=== PATIENT | male | born 1960 | race Two or more races ===

== ENCOUNTER 2022-08-31 13:25 | Emergency (ER) | payer MEDICAID ==
[~2022-08-31] VITALS: Ht 170.2 cm; Wt 105.5 kg
[2022-08-31] MEDS ORDERED: BACDST PO (16:00)
[2022-08-31] MEDS ORDERED: ACET1CAP14 PO (16:00)
[2022-08-31] MEDS ORDERED: ACETAMINOPHEN 500 MG TAB PO ONE (16:00)
[2022-08-31] MEDS ORDERED: cefTRIAXone SOD 1,000 MG VL IM ONE (16:00)
[2022-08-31] MEDS ORDERED: FURO1TAB31 PO (16:03)
[2022-08-31 16:32] VITALS: BP 166/90
== END 2022-08-31 16:02 | disposition home or self-care (01) ==
LOC: ER 13:25
DX: S83.91XA Sprain of unspecified site of right knee, initial encounter (principal); L03.115 Cellulitis of right lower limb; Z98.890 Other specified postprocedural states; X50.1XXA Overexertion from prolonged static or awkward postures, initial encounter; Y93.89 Activity, other specified; Y92.89 Other specified places as the place of occurrence of the external cause; Y99.8 Other external cause status
CPT/HCPCS: 73562; 96372; 99283; J0696

== ENCOUNTER 2025-06-28 14:34 | Emergency (ER) | payer MEDICAID ==
[~2025-06-28] VITALS: Ht 170.2 cm; Wt 100.0 kg
[~2025-06-28 14:34] MED LIST: ACET1CAP14 PO; BACDST PO; FURO1TAB31 PO
[2025-06-28 14:48] VITALS: PULSE 70; RESP 23; O2SAT 93
--- NOTE | 2025-06-28 15:26 | ED.PDOC ---
Richardt. trauma (HPI) HPI Comments 65 y.o male with PMHx of HTN, presents to the ED via EMS for an evaluation of a dog bite. Patient reports he was bitten by a stray pitbull and presents with a 4cm laceration to the left medial eye, nasal and chin area. Patient states while being attacked, he fell onto his right side and presents with right arm pain d escribed as a soreness sensation. He denies any LOC or head injuries. He is not updated on his tetanus vaccine. Chief Complaint: Animal Bite Time Seen by MD: 15:19 Primary Care Provider: MARCIE Reviewed notes: Nurses Notes, Demand Generation Manager Notes, Medications, Allergies Allergies: Coded Allergies: NO KNOWN ALLERGIES (Unverified , 08/31/22) Home Meds Active Scripts Furosemide (Lasix) 40 Mg Tab, 20 MG PO DAILY for 3 Days, #3 TAB 0 Refills Prov:RANDALL ANGUIANO [facility] 08/31/22 Acetaminophen (Tylenol) 325 Mg Cap, 325 MG PO Q4HPRN PRN, #30 CAP 0 Refills Take 1-2 caps po q4h prn for pain Prov:RANDALL ANGUIANO [facility] 08/31/22 Sulfamethoxazole W/Trimethopri (Bactrim Ds Tablet) 1 Tab Tb, 1 TAB PO BID for 10 Days, #20 TAB 0 Refills Prov:RANDALL ANGUIANO [facility] 08/31/22 Information Source: Patient, Emergency Med Personnel Mode of Arrival: EMS Severity: Moderate Timing: Hours Duration: Since onset Location: (R) Arm, (R) Forearm Location of laceration: Face Mechanism: Other (dog attack ) Associated signs and symtoms: Other Past Medical History PAST MEDICAL HISTORY: HTN Surgical History (Other): left big toe and left eye Family History Family History: Family hx of Cancer Social History Smoker: Non-Smoker Alcohol: Denies ETOH Use Drugs: Denies Drug Use Lives In: Home Constitutional: denies: chills, diaphoresis, fatigue, fever, malaise, sweats, weakness, others EENTM: denies: blurred vision, double vision, ear bleeding, ear discharge, ear drainage, ear pain, ear ringing, eye pain, eye redness, hearing loss, mouth pain, mouth swelling, nasal discharge, nose bleeding, nose congestion, nose pain, photophobia, tearing, throat pain, throat swelling, voice changes, others Respiratory: denies: cough, hemoptysis, orthopnea, SOB at rest, shortness of breath, SOB with excertion, stridor, wheezing, others Cardiovascular: denies: chest pain, dizzy spells, diaphoresis, Dyspnea on exertion, edema, irregular heart beat, left arm pain, lightheadedness, palpitations, PND, syncope, others Gastrointestinal: denies: abdomen distended, abdominal pain, blood streaked bowels, constipated, diarrhea, dysphagia, difficulty swallowing, hematemesis, melena, nausea, poor appetite, poor fluid intake, rectal bleeding, rectal pain, vomiting, others Genitourinary: denies: burning, dysuria, flank pain, frequency, hematuria, incontinence, penile discharge, penile sore, pain, testicle pain, testicle swelling, urgency, others Neurological: denies: dizziness, fainting, headache, left sided numbness, left sided weakness, numbness, paresthesia, pre-existing deficit, right sided numbness, right sided weakness, seizure, speech problems, tingling, tremors, weakness, others Musculoskeletal: reports: others (right arm pain ); denies: back pain, gout, joint pain, joint swelling, muscle pain, muscle stiffness, neck pain Integumetry: reports: laceration; denies: bruises, change in color, change in hair/nails, dryness, lesions, lumps, rash, wounds, others Allergic/Immunocompromised: denies: Difficulty Healing, Frequent Infections, Hives, Itching, others Hematologic/Lymphatic: denies: anemia, blood clots, easy bleeding, easy bruising, swollen glands, others Endocrine: denies: excessive hunger, excessive sweating, excessive thirst, excessive urination, flushing, intolerance to cold, intolerance to heat, unexplained weight gain, unexplained weight loss, others Psychiatric: denies: anxiety, bipolar disorder, depression, hopeless, panic disorder, schizophrenia, sleepless, suicidal, others All Other Systems: Reviewed and Negative Physical Exam General Appearance: Moderate Distress HEENT: Pharynx Normal, TMs Normal, Other (Dog bite around the medial aspect of the left eye as well as the nasal region) Neck: Full Range of Motion, Non-Tender, Normal, Normal Inspection Respiratory: Chest Non-Tender, Lungs Clear, No Accessory Muscle Use, No Respiratory Distress, Normal Breath Sounds Cardiovascular: No Edema, No JVD, No Murmur, No Gallop, Normal Peripheral Pulses, Regular Rate/Rhythm Breast Exam: Deferred Gastrointestinal: No Organomegaly, Non Tender, No Pulsatile Mass, Normal Bowel Sounds, Soft Genitalia: Deferred Pelvic: Deferred Rectal: Deferred Extremities: No calf tenderness, Normal capillary refill, No pedal edema, Other (Right shoulder with obvious deformity with decreased range of motion and tenderness) Musculoskeletal : Apperance: Normal Neurologic: Alert, observer gravity prospecting II-XII nml as Tested, No Motor Deficits, Normal Affect, Normal Mood, No Sensory Deficits Cerebellar Function: Normal Reflexes: Normal Skin: Dry, Normal Color, Warm Lymphatic: No Adenopathy Was a procedure done? Was a procedure done?: Yes Sedation Sedation?: Yes Informed consent obtained: Yes Sedation start time: 17:44 Sedation end time: 17:54 Sedation total time: 10 minutes Reduction Indication: Dislocation Sedation: Consents obtained, Sedation as ordered Intra-articular anesthetic magali: No Post-reduction x-ray show: Reduction (Right shoulder), Good Alignment Informed consent obtained: Yes Risks/benefits/alt described: Yes Differential Diagnosis Multiple Trauma: Fractures, Abrasions, Contusion, Laceration X-Ray, Labs, Meds, VS Vital Signs Date Time Temp Pulse Resp B/P (MAP) Pulse Ox O2 Delivery O2 Flow Rate FiO2 06/28/25 18:25 71 16 184/110 (134) 95 06/28/25 18:10 70 19 180/113 (135) 96 06/28/25 17:58 68 22 186/115 (138) 96 06/28/25 17:53 67 20 178/111 (133) 97 06/28/25 17:48 71 17 185/110 (135) 94 06/28/25 17:44 69 23 97 6.0 44 66 22 96 68 96 06/28/25 17:43 98.2 70 17 165/99 (121) 96 98.2 06/28/25 17:06 68 21 172/90 (117) 94 06/28/25 17:05 68 21 172/90 06/28/25 16:22 70 24 174/108 06/28/25 15:00 98.4 73 23 109/98 (102) 91 98.4 06/28/25 14:48 98.2 70 23 174/98 (123) 93 98.2 06/28/25 14:48 70 23 93 Room Air* 0 21 06/28/25 14:34 98.5 81 16 196/70 94 98.5 Lab Test 06/28/25 15:37 Range/Units White Blood Count 5.8 4.4-10.8 10^3/uL Red Blood Count 5.13 4.5-5.90 10^6/uL Hemoglobin 15.4 13.5-17.5 g/dL Hematocrit 45.9 41.0-53.0 % Mean Corpuscular Volume 89.6 80.0-100.0 fL Mean Corpuscular Hemoglobin 30.1 28.0-32.0 pg Mean Corpuscular Hemoglobin Concent 33.6 32.0-36.0 g/dL Red Cell Distribution Width 13.3 11.8-14.3 % Platelet Count 234 140-450 10^3/uL Mean Platelet Volume 7.5 6.9-10.8 fL Neutrophils (%) (Auto) 65.3 37.0-80.0 % Lymphocytes (%) (Auto) 19.4 10.0-50.0 % Monocytes (%) (Auto) 11.3 0.0-12.0 % Eosinophils (%) (Auto) 3.4 0.0-7.0 % Basophils (%) (Auto) 0.6 0.0-2.0 % Neutrophils # (Auto) 3.8 1.6-8.6 10 ^3/uL Lymphocytes # (Auto) 1.1 0.4-5.4 10 ^3/uL Monocytes # (Auto) 0.7 0-1.3 10 ^3/uL Eosinophils # (Auto) 0.2 0-0.8 10 ^3/uL Basophils # (Auto) 0 0-0.2 10 ^3/uL Nucleated Red Blood Cells 0.0 % Sodium Level 140 136-145 mmol/L Potassium Level 4.0 3.5-5.1 mmol/L Chloride Level 106 98-107 mmol/L Carbon Dioxide Level 26 20-31 mmol/L Anion Gap 8 5-15 Blood Urea Nitrogen 8 L 9-23 mg/dL Creatinine 1.18 0.700-1.30 mg/dL Glomerular Filtration Rate Calc 69 >90 mL/min BUN/Creatinine Ratio 6.8 L 10.0-20.0 Serum Glucose 120 H 74-106 mg/dL Calcium Level 9.2 8.7-10.4 mg/dL Current Medications Medications (Trade) Dose Ordered Sig/Tomas Route Start Time Stop Time Status Last Admin Sodium Chloride 1,000 ml @ 1,000 mls/hr Q1H ONCE IV 06/28/25 15:30 06/28/25 16:29 DC 06/28/25 16:22 Ondansetron HCl (Zofran) 4 mg ONCE ONCE IV 06/28/25 15:30 06/28/25 15:31 DC 06/28/25 16:21 Morphine Sulfate 4 mg ONCE ONCE IV 06/28/25 15:30 06/28/25 15:31 DC 06/28/25 16:22 Diphtheria/ Tetanus/Acell Pertussis (Boostrix T-Dap) 0.5 ml ONCE ONCE IM 06/28/25 15:30 06/28/25 15:31 DC 06/28/25 16:21 Vancomycin HCl 250 ml @ 250 mls/hr ONCE ONCE IV 06/28/25 17:00 06/28/25 17:59 DC 06/28/25 17:02 Etomidate 20 mg ONCE ONCE IV 06/28/25 17:15 06/28/25 17:16 DC 06/28/25 17:44 IV Hep-Lock was established. The patient was given morphine 4 mg IV push for the pain The patient was given Zofran 4 mg IV push for the nausea The patient was given a tetanus shot. The patient was given vancomycin IV piggyback and Unasyn for the possible infection prevention of the dog bite. The patient's CBC is within normal limits The chemistry panel is within normal limits Maxillofacial CAT scan shows: IMPRESSION: 1. Acute left inferior orbital blowout fracture. Entrapment of the left inferior rectus cannot be excluded. Correlation with ophthalmologic examination is suggested. 2. Acute displaced nasal bone fractures with overlying soft tissue swelling. A nasal septal hematoma cannot be excluded and attention on physical examination is suggested. 3. Subcutaneous gas and swelling overlying the chin, correlation for recent injury suggested. 4. Additional findings as detailed. X-ray of the right shoulder shows an anterior dislocation of the findings on the CAT scan we did contact [facility]. We spoke with Dr. Ortiz and he has accepted the patient for transfer. X-ray of the right shoulder shows proper placement after the procedure was done for reduction of the right shoulder The patient will be transferred to [facility] at this time Patient's blood pressure has remained somewhat elevated so we are giving the patient hydralazine here in the emergency department's Images Reviewed?: Images reviewed and evaluated by me Time of 1ST Reevaluation: 15:22 Reevaluation 1ST: Unchanged Patient Education/Counseling: Diagnosis, Treatment, Prognosis Family Education/Counseling: No Family Present Departure 1 Departure Time of Disposition: 18:50 Impression: Primary Impression: Dog bite of face Qualified Codes: S01.85XA - Open bite of other part of head, initial encounter; W54.0XXA - Bitten by dog, initial encounter Additional Impressions: Anterior dislocation of right shoulder Qualified Codes: S43.014A - Anterior dislocation of right humerus, initial encounter Nasal bone fracture Qualified Codes: S02.2XXB - Fracture of nasal bones, initial encounter for open fracture Disposition: 01 HOME / SELF CARE / HOMELESS Condition: Fair Discharged With: Self Critical Care Note Critical Care Time?: Yes (45 min-critical care time only) Stability Stability form required: Yes Stable for transfer: Intended for transfer, To designated facility I personally scribed for DEBBI JAIN MD ([email or web address]) on 06/28/25 at 15:26. Electronically submitted by Gwendolyn Holloway ([facility]). DEBBI JAIN MD Jun 28, 2025 15:26
[2025-06-28 16:01] LABS: Hematocrit 45.9 % (41.0-53.0); Hemoglobin 15.4 g/dL (13.5-17.5); Mean Corpuscular Hemoglobin 30.1 pg (28.0-32.0); Mean Corpuscular Volume 89.6 fL (80.0-100.0); Nucleated Red Blood Cells % 0.0 %
[2025-06-28 16:04] LABS: Chloride 106 mmol/L (98-107); Potassium 4.0 mmol/L (3.5-5.1); Sodium 140 mmol/L (136-145)
[2025-06-28 16:06] LABS: Anion Gap 8 (5-15); Calcium 9.2 mg/dL (8.7-10.4); Carbon Dioxide 26 mmol/L (20-31)
[2025-06-28 16:11] LABS: BUN/Creatinine Ratio 6.8 (10.0-20.0)
[2025-06-28 16:13] LABS: Blood Urea Nitrogen 8 mg/dL (9-23); Glucose 120 mg/dL (74-106)
[2025-06-28] MEDS: ONDANSETRON HCL 4 MG/2 ML VIAL IV ONE (16:21)
[2025-06-28] MEDS: TETANUS-DIPTH-ACEL PERTUSSIS 0.5ML SYR Tdap IM ONE (16:21)
[2025-06-28] MEDS: MORPHINE SULFATE 4 MG/ML SYR/VIAL IV ONE (16:22)
[2025-06-28] MEDS: SODIUM CHLORIDE 0.9% 1,000 ML IV ONE (16:22)
--- NOTE | 2025-06-28 16:33 | DVH ---
CLINICAL INDICATION: trauma TECHNIQUE: 3 radiographic views of the right shoulder were obtained. COMPARISON: None FINDINGS/IMPRESSION: Anterior dislocation right humerus. No fractures visualized.
--- NOTE | 2025-06-28 16:41 | DVH ---
EXAM: XY R SHOULDER 2+ VIEW XRAY HISTORY: TRAUMA POSSIBLE DISLOCATION COMPARISON: None TECHNIQUE: 3 views of the right shoulder were performed. FINDINGS/IMPRESSION: 1. Anterior dislocation of the right glenohumeral joint. 2. Question of ill-defined fracture of the right glenoid versus artifactual appearance. Consider follow-up noncontrast CT or MRI of the right shoulder 4 better characterization of the bony detail. 3. Acromioclavicular hypertrophy with prominent inferiorly projecting bone spur.
--- NOTE | 2025-06-28 16:44 | DVH ---
HISTORY: trauma TECHNIQUE: Nonenhanced axial images through the facial bones with coronal and sagittal MPR. Radiation Dose Information: CT Dose: CTDI volume is 66.95 mGy. Dose-length product is 1564.29 mGy*cm COMPARISON: None FINDINGS: There is a left inferior orbital blowout fracture with herniation of fat into the region of the maxillary antrum. There is mild thickening of the left inferior rectus such that entrapment cannot be entirely excluded. There are acute comminuted and displaced left nasal bone fractures with overlying soft tissue swelling. There is mild Age-indeterminate angulation of the nasal septum. Intermediate density is seen throughout the left nostril, a nasal septal hematoma cannot be excluded attention on physical examination is suggested. There is left pre maxillary subcutaneous stranding and swelling. There is mild left periorbital swelling. There is no proptosis or retro bulbar stranding. There is subcutaneous gas and swelling overlying the chin. There is mild mucosal thickening within the left ethmoid air cells. The paranasal sinuses and mastoid air cells are otherwise clear. Visualized intracranial structures are unremarkable. Dental hardware obscures evaluation of the lower face. Several upper teeth are absent. IMPRESSION: 1. Acute left inferior orbital blowout fracture. Entrapment of the left inferior rectus cannot be excluded. Correlation with ophthalmologic examination is suggested. 2. Acute displaced nasal bone fractures with overlying soft tissue swelling. A nasal septal hematoma cannot be excluded and attention on physical examination is suggested. 3. Subcutaneous gas and swelling overlying the chin, correlation for recent injury suggested. 4. Additional findings as detailed. Radiation optimization: All CT scans at this facility use at least one of these dose optimization techniques: automated exposure control mA and/or kV adjustment per patient size (includes targeted exams where dose is matched to clinical indication) or iterative reconstruction.
[2025-06-28] MEDS: VANCOMYCIN 1GM/250ML KIT 250 ML IV ONE (17:02)
[2025-06-28] MEDS: ETOMIDATE (2MG/ML) 20ML VIAL IV ONE (17:44)
--- NOTE | 2025-06-28 18:45 | DVH ---
EXAM: XY R SHOULDER 1V XRAY INDICATION: s/p shoulder reduction, verify placement TECHNIQUE:: 1 views of the right shoulder COMPARISON: XY R SHOULDER 2+ VIEW XRAY on DOS: 06/28/25 FINDINGS/IMPRESSION: Status post closed reduction with presumed successful ligament. Elevation of the right humeral head suggestive of superior rotator cuff insufficiency. Mild degenerative change of the right acromioclavicular joint. Appearance of Hill- Sachs defect.
[2025-06-28] MEDS: AMPICILLIN & SULBACTAM SODIUM 3 GM in SODIUM CHL 0.9% 100 ML IV SCH (19:00)
[2025-06-28] MEDS: hydrALAZINE HCL 20 MG/ML VL IV ONE (19:03)
[2025-06-28 20:19] VITALS: BP 164/89; PULSE 85; RESP 17; TEMP 98; O2SAT 96
== END 2025-06-28 20:58 | disposition short-term general hospital (02) ==
LOC: ER 14:34 → EDBD 14:34 → ER 20:58
DX: S02.2XXA Fracture of nasal bones, initial encounter for closed fracture (principal); S43.014A Anterior dislocation of right humerus, initial encounter; S01.85XA Open bite of other part of head, initial encounter; I10 Essential (primary) hypertension; Z79.899 Other long term (current) drug therapy; W54.0XXA Bitten by dog, initial encounter; Y93.89 Activity, other specified; Y92.89 Other specified places as the place of occurrence of the external cause; Y99.8 Other external cause status
CPT/HCPCS: 23650; 36415; 70486; 73020; 73030; 73060; 80048; 85025; 90471; 90715; 96361; 96365; 96367; 96375; 99152; 99291; J0360; J2270; J2405; J3373; J7030

== ENCOUNTER 2025-07-04 08:18 | Emergency (ER) | payer MEDICAID ==
[~2025-07-04] VITALS: Ht 170.2 cm; Wt 100.0 kg
--- NOTE | 2025-07-04 08:33 | ED.PDOC ---
Musculoskeletal HPI Comments 65 y/o M, BIBA, with PMHx of HTN presents to the ED for CC of right shoulder pain. EMS reports, patient is coming from home where he c/o right shoulder pain with associated swelling following extension of his right upper extremity. Per EMS, patient suffered a right shoulder dislocation on Tuesday (06/28/25) which was successfully reduced. Patient denies numbness, tingling, trauma, injury, or fall. Time Seen by MD: 08:25 Primary Care Provider: MARCIE Reviewed Notes: Nurses Notes, Carding Machine Feeder Notes, Medications, Allergies Allergies: Coded Allergies: NO KNOWN ALLERGIES (Unverified , 08/31/22) Home Meds Active Scripts Furosemide (Lasix) 40 Mg Tab, 20 MG PO DAILY for 3 Days, #3 TAB 0 Refills Prov:RANDALL ANGUIANO [facility] 08/31/22 Acetaminophen (Tylenol) 325 Mg Cap, 325 MG PO Q4HPRN PRN, #30 CAP 0 Refills Take 1-2 caps po q4h prn for pain Prov:RANDALL ANGUIANO [facility] 08/31/22 Sulfamethoxazole W/Trimethopri (Bactrim Ds Tablet) 1 Tab Tb, 1 TAB PO BID for 10 Days, #20 TAB 0 Refills Prov:RANDALL ANGUIANO [facility] 08/31/22 Information Source: Patient Mode of Arrival: EMS Location: Right Extremity Location: Shoulder Timing: Hours Prehospital treatment: None Severity: Moderate Able to Move Extremity: Yes Bear Weight: Limited Pain: Moderate Mechanism: Other (extension) Onset of Symptoms: After Trauma Symptoms: Swelling, Pain DVT Risk Factors: NONE Last Tetanus: Unknown History of: Shoulder Dislocation Associated signs and symptoms: Shoulder pain Past Medical History PAST MEDICAL HISTORY: HTN Family History Family History: Family hx of Cancer Social History Smoker: Non-Smoker Alcohol: Denies ETOH Use Drugs: Denies Drug Use Lives In: Home Constitutional: denies: chills, diaphoresis, fatigue, fever, malaise, sweats, weakness, others EENTM: denies: blurred vision, double vision, ear bleeding, ear discharge, ear drainage, ear pain, ear ringing, eye pain, eye redness, hearing loss, mouth pain, mouth swelling, nasal discharge, nose bleeding, nose congestion, nose pain, photophobia, tearing, throat pain, throat swelling, voice changes, others Respiratory: denies: cough, hemoptysis, orthopnea, SOB at rest, shortness of breath, SOB with excertion, stridor, wheezing, others Cardiovascular: denies: chest pain, dizzy spells, diaphoresis, Dyspnea on exertion, edema, irregular heart beat, left arm pain, lightheadedness, palpitations, PND, syncope, others Gastrointestinal: denies: abdomen distended, abdominal pain, blood streaked bowels, constipated, diarrhea, dysphagia, difficulty swallowing, hematemesis, melena, nausea, poor appetite, poor fluid intake, rectal bleeding, rectal pain, vomiting, others Genitourinary: denies: burning, dysuria, flank pain, frequency, hematuria, incontinence, penile discharge, penile sore, pain, testicle pain, testicle swelling, urgency, others Neurological: denies: dizziness, fainting, headache, left sided numbness, left sided weakness, numbness, paresthesia, pre-existing deficit, right sided numbness, right sided weakness, seizure, speech problems, tingling, tremors, weakness, others Musculoskeletal: reports: others (right shoulder pain); denies: back pain, gout, joint pain, joint swelling, muscle pain, muscle stiffness, neck pain Integumetry: denies: bruises, change in color, change in hair/nails, dryness, laceration, lesions, lumps, rash, wounds, others Allergic/Immunocompromised: denies: Difficulty Healing, Frequent Infections, Hives, Itching, others Hematologic/Lymphatic: denies: anemia, blood clots, easy bleeding, easy bruising, swollen glands, others Endocrine: denies: excessive hunger, excessive sweating, excessive thirst, excessive urination, flushing, intolerance to cold, intolerance to heat, unexplained weight gain, unexplained weight loss, others Psychiatric: denies: anxiety, bipolar disorder, depression, hopeless, panic disorder, schizophrenia, sleepless, suicidal, others All Other Systems: Reviewed and Negative Physical Exam General Appearance: Moderate Distress HEENT: Normal ENT Inspection, Pharynx Normal, TMs Normal Neck: Full Range of Motion, Non-Tender, Normal, Normal Inspection Respiratory: Chest Non-Tender, Lungs Clear, No Accessory Muscle Use, No Respiratory Distress, Normal Breath Sounds Cardiovascular: No Edema, No JVD, No Murmur, No Gallop, Normal Peripheral Pulses, Regular Rate/Rhythm Breast Exam: Deferred Gastrointestinal: No Organomegaly, Non Tender, No Pulsatile Mass, Normal Bowel Sounds, Soft Genitalia: Deferred Pelvic: Deferred Rectal: Deferred Extremities: Decreased range of motion (Right upper extremity) Musculoskeletal : Apperance: Normal Neurologic: Alert, chief meteorologist II-XII nml as Tested, No Motor Deficits, Normal Affect, Normal Mood, No Sensory Deficits Cerebellar Function: NOT DONE Reflexes: NOT DONE Skin: Dry, Normal Color, Warm Lymphatic: No Adenopathy Was a procedure done? Was a procedure done?: Yes Sedation Sedation?: No Reduction Indication: Dislocation Intra-articular anesthetic magali: Yes Post-reduction x-ray show: Reduction, Good Alignment Notes Right shoulder reduction successful Differential Diagnosis EXT Differential Diagnosis: Dislocation X-Ray, Labs, Meds, VS Vital Signs Date Time Temp Pulse Resp B/P (MAP) Pulse Ox O2 Delivery O2 Flow Rate FiO2 07/04/25 12:00 68 16 162/108 (126) 91 07/04/25 11:37 154/101 07/04/25 11:36 72 18 92 4.0 36 72 18 92 74 90 07/04/25 11:36 74 19 154/101 07/04/25 10:30 70 20 166/108 (127) 90 07/04/25 09:31 98.2 78 16 177/91 98 98.2 07/04/25 09:28 183/100 07/04/25 09:24 77 21 183/100 07/04/25 08:45 97.6 70 20 207/78 (121) 95 97.6 07/04/25 08:45 71 20 95 Room Air* 0 21 Current Medications Medications (Trade) Dose Ordered Sig/Tomas Route Start Time Stop Time Status Last Admin Hydromorphone HCl (Dilaudid Injection) 1 mg ONCE ONCE IM 07/04/25 08:30 07/04/25 08:31 DC 07/04/25 09:24 Ondansetron HCl (Zofran) 4 mg ONCE ONCE IM 07/04/25 08:30 07/04/25 08:31 DC 07/04/25 09:27 Clonidine HCl (Catapres Tablet) 0.2 mg ONCE ONCE PO 07/04/25 09:15 07/04/25 09:16 DC 07/04/25 09:28 Etomidate 20 mg ONCE ONCE IV 07/04/25 11:15 07/04/25 11:16 DC 07/04/25 11:35 Patient alert. Complaining of right shoulder pain. Had dislocation recently of the shoulder. Vitals stable. Answering questions. On examination he does have swelling of the right shoulder. Was given pain medication. Continue monitoring. [address] [address] Ph: [phone] DIAGNOSTIC IMAGING Diagnostic Imaging Report : [id number] Signed PATIENT: LISA MALONEY ACCT: [id number] UNIT: [id number] : 1960 LOC: ER ROOM / BED: / AGE / SEX: 65 / M ADM STATUS: REG ER SERVICE 7 ORDERING PHYSICIAN: SERINA FISHMAN MD PROCEDURE(s): RSHD2 - R SHOULDER 2+ VIEW XRAY REASON: dislocation ORDER NUMBER(s): [id number], ACCESSION NUMBER(s): [id number] CLINICAL INDICATION: dislocation TECHNIQUE: 1-view right shoulder XY R SHOULDER 2+ VIEW XRAY COMPARISON: XY R SHOULDER 1V XRAY on DOS: 06/28/25, XY R SHOULDER 2+ VIEW XRAY on DOS: 06/28/25 FINDINGS/IMPRESSION: : Inferior dislocation of the right shoulder joint. Moderate degenerative changes of the acromioclavicular joint. No obvious fracture identified. ATED BY: ADRI LI MD DICTATED DATE/TIME: 07/04/25 1000 SIGNED BY: ADRI LI MD SIGNED DATE/TIME: 07/04/25 1000 CC: Time of 1ST Reevaluation: 08:55 Reevaluation 1ST: Unchanged Patient Education/Counseling: Diagnosis, Treatment Family Education/Counseling: No Family Present Departure 1 Departure Time of Disposition: 09:32 Impression: Primary Impression: Anterior dislocation of right shoulder Qualified Codes: S43.014A - Anterior dislocation of right humerus, initial encounter Disposition: 01 HOME / SELF CARE / HOMELESS Condition: Good Discharged With: Self Critical Care Note Critical Care Time?: No Stability Stability form required: No Heart Score Heart Score: Heart Score Response (Comments) Value History N/A 0 EKG N/A 0 Age N/A 0 Risk Factors N/A 0 Troponin N/A 0 Total 0 I personally scribed for SERINA FISHMAN MD ([email or web address]) on 07/04/25 at 08:33. Electronically submitted by Mima Carvalho ([email or web address]). I personally scribed for SERINA FISHMAN MD ([email or web address]) on 07/04/25 at 10:41. Electronically submitted by Mima Carvalho ([email or web address]). SERINA FISHMAN MD Jul 04, 2025 08:33
[2025-07-04 08:45] VITALS: PULSE 71; RESP 20; O2SAT 95
[2025-07-04] MEDS: HYDROmorphone HCL 2 MG/ML VL/or syr IM ONE (09:24)
[2025-07-04] MEDS: ONDANSETRON HCL 4 MG/2 ML VIAL IM ONE (09:27)
[2025-07-04 09:31] VITALS: TEMP 98.2
--- NOTE | 2025-07-04 10:02 | DVH ---
CLINICAL INDICATION: dislocation TECHNIQUE: 1-view right shoulder XY R SHOULDER 2+ VIEW XRAY COMPARISON: XY R SHOULDER 1V XRAY on DOS: 06/28/25, XY R SHOULDER 2+ VIEW XRAY on DOS: 06/28/25 FINDINGS/IMPRESSION: : Inferior dislocation of the right shoulder joint. Moderate degenerative changes of the acromioclavicular joint. No obvious fracture identified.
[2025-07-04] MEDS: ETOMIDATE (2MG/ML) 20ML VIAL IV ONE (11:35)
--- NOTE | 2025-07-04 12:11 | DVH ---
CLINICAL INDICATION: POST REDUCTION TECHNIQUE: 1 XY R SHOULDER 1V XRAY COMPARISON: XY R SHOULDER 2+ VIEW XRAY on DOS: 07/04/25, XY R SHOULDER 1V XRAY on DOS: 06/28/25, XY R SHOULDER 2+ VIEW XRAY on DOS: 06/28/25 FINDINGS/IMPRESSION: : There is no evidence of acute fracture or dislocation. Soft tissues are unremarkable.
[2025-07-04 14:00] VITALS: BP 158/103; PULSE 71; RESP 20; O2SAT 93
== END 2025-07-04 14:23 | disposition home or self-care (01) ==
LOC: ER 08:18 → EDBD 08:18 → ER 14:23
DX: S43.014A Anterior dislocation of right humerus, initial encounter (principal); I10 Essential (primary) hypertension; Z79.899 Other long term (current) drug therapy; X58.XXXA Exposure to other specified factors, initial encounter; Y93.89 Activity, other specified; Y92.89 Other specified places as the place of occurrence of the external cause; Y99.8 Other external cause status
CPT/HCPCS: 23650; 73020; 73030; 96372; 99285; J1171; J2405